=== PATIENT | female | born 1990 | race American Indian/Alaskan Native ===

== ENCOUNTER 2018-08-01 09:44 | Inpatient (IN) | payer MEDICAID ==
[2018-08-01] MEDS ORDERED: Sodium Chloride 0.9% 1,000 ML IV ONE ×3 (10:01→10:56)
--- NOTE | 2018-08-01 10:14 | C.PDOC ---
History Of Present Illness 28 y/o female,w/PMhx of Type 1 diabetes, brought to ER by ambulance for nausea, vomiting, near-syncope, and shortness of breath which began at approximately 3 am. Patient states that she was in [place] and she did not take insulin for the past 2 days. Patient reports that she had DKA about 6 months ago. Denies having fever, chills, CP, and abdominal pain. Time Seen by Provider: 08/01/18 10:01 Chief Complaint (Nursing): High Blood Sugar History Per: Patient History/Exam Limitations: no limitations Onset/Duration Of Symptoms: Hrs Current Symptoms Are (Timing): Still Present Severity: Moderate Past Medical History Reviewed: Historical Data, Nursing Documentation, Vital Signs - Medical History PMH: Diabetes Surgical History: Family History: States: No Known Family Hx - Social History Hx Alcohol Use: No Hx Substance Use: No - Immunization History Hx Tetanus Toxoid Vaccination: No Hx Influenza Vaccination: No Hx Pneumococcal Vaccination: No Review Of Systems Except As Marked, All Systems Reviewed And Found Negative. Cardiovascular: Negative for: Chest Pain Respiratory: Positive for: Shortness of Breath Gastrointestinal: Positive for: Nausea, Vomiting. Negative for: Abdominal Pain Physical Exam - Physical Exam Appears: Other (uncomfortable, moaning, actively vomiting) Skin: Normal Color, Warm, Dry Head: Atraumatic, Normacephalic Eye(s): bilateral: Normal Inspection Nose: Normal Oral Mucosa: Dry Lips: Other (dry chapped lips) Neck: Supple Chest: Symmetrical Cardiovascular: Rhythm Regular (with tachycardia) Respiratory: Normal Breath Sounds, No Rales, No Rhonchi, No Wheezing Gastrointestinal/Abdominal: Soft, Tenderness (mild diffuse tenderness), No Guarding, No Rebound Neurological/Psych: Oriented x3, Normal Speech ED Course And Treatment Progress Note: Labs, UA, HCG- Qual.,and CXR ordered. Patient treated with Insulin IV, Zofran IV, and IV Fluids. Disposition - Disposition Forms: [facility] ([place]) - Scribe Statement The provider has reviewed the documentation as recorded by the Scribe Rolanda Carlson Provider Attestation: All medical record entries made by the Scribe were at my direction and personally dictated by me. I have reviewed the chart and agree that the record accurately reflects my personal performance of the history, physical exam, medical decision making, and the department course for this patient. I have also personally directed, reviewed, and agree with the discharge instructions and disposition.
[2018-08-01] MEDS ORDERED: Sodium Chloride 0.9% 1,000 ML ONE ×2 (10:19→13:32)
[2018-08-01 10:30] LABS: HEMOGLOBIN 13.7 g/dL (11.0-16.0); MONO # 0.3 K/uL (0.0-0.8)
[2018-08-01 10:35] LABS: VENOUS BLOOD GAS BASE EXCESS -21.3 mmol/L (0.0-2.0); VENOUS BLOOD GAS PCO2 34 mmHg (40-60); VENOUS BLOOD GAS PO2 33 mm/Hg (30-55); VENOUS BLOOD PH 7.02 (7.32-7.43)
[2018-08-01] MEDS ORDERED: (Novolin R) Insulin Human Regular 100 units/ml vial IVP ONE (10:37)
[2018-08-01] MEDS ORDERED: Insulin Human Regular 100 UNIT in Sodium Chloride 0.9% 99 ML IV STA (10:38)
[2018-08-01 10:54] LABS: BASO # 0.1 K/uL (0.0-0.2); BASO % 0.8 % (0.0-2.0); LYMPH # 1.8 K/uL (1.0-4.3); LYMPH % 11.6 % (20.0-40.0); MEAN CELL VOLUME 90.2 fL (81.0-99.0); MEAN PLATELET VOLUME 9.9 fL (7.2-11.7); MONO % 2.1 % (0.0-10.0); NEUT # 13.3 K/uL (1.8-7.0); NEUT % 85.5 % (50.0-75.0); RBC 5.06 Mil/uL (3.80-5.20); RED CELL DISTRIBUTION WIDTH 15.2 % (11.5-14.5); WHITE BLOOD COUNT 15.5 K/uL (4.8-10.8)
[2018-08-01 11:15] LABS: ALB/GLOB RATIO 1.5 (1.0-2.1); ALBUMIN 5.3 g/dL (3.5-5.0); ALT/SGPT 10 U/L (9-52); AST/SGOT 26 U/L (14-36); BLOOD UREA NITROGEN 20 mg/dL (7-17); GFR NON-AFRICAN AMERICAN > 60; LIPASE 53 U/L (23-300)
--- NOTE | 2018-08-01 11:17 | RAD ---
Date of service: 08/01/2018 PROCEDURE: CHEST RADIOGRAPH, 1 VIEW HISTORY: possible dkA COMPARISON: No prior FINDINGS: LUNGS: Clear. PLEURA: No pneumothorax or pleural fluid seen. CARDIOVASCULAR: No aortic atherosclerotic calcification present. Normal. OSSEOUS STRUCTURES: No significant abnormalities. VISUALIZED UPPER ABDOMEN: Normal. OTHER FINDINGS: None. IMPRESSION: No active disease.
[2018-08-01] MEDS ORDERED: (Novolin R) Insulin Human Regular 100 units/ml vial ONE (11:40)
[2018-08-01] MEDS ORDERED: Sodium Chloride 0.9% 2,000 ML ONE (11:41)
--- NOTE | 2018-08-01 11:43 | CP.PCM.CON ---
History of Present Illness - History of Present Illness History of Present Illness: PGY-1 ICU consult note for Dr Diez service cc: nausea Patient is a 28 year old female with pmhx of Diabetes type 1 that came to the ED today for nausea and 10 episodes of clear yellow, non bloody vomiting. Patient admits to having abdominal pain and headaches, as well as back pain. Patient has been out of town to [place] and states she has not taken her injectable insulin since Wednesday. Patient complaints of being cold, and it is seen shivering. Patient denies chest pain, shortness of breath or fever, diarrhea, constipation or urinary symptoms. Patient says cannot speak anymore due to abdominal pain. As per ED note, patient had a previous diagnosis of DKA about 6 months ago. today's labs are indicative of DKA, patient received one stat dose of IVP insulin and is currently on an insulin drip. PMD: unknown Pmhx: diabetes type 1 Shx: 2 c-sections (2016, 2011) All: NKDA Meds: insulin Review of Systems - Review of Systems All systems: reviewed and no additional remarkable complaints except Review of Systems: as stated in HPI Past Patient History - Past Social History Smoking Status: Never Smoked - ENDOCRINE/METABOLIC Hx Diabetes Mellitus Type 1: Yes - PSYCHIATRIC Hx Substance Use: No - SURGICAL HISTORY Hx Surgeries: Yes Hx Section: Yes (CS) - ANESTHESIA Hx Anesthesia: Yes Hx Anesthesia Reactions: No Meds Allergies/Adverse Reactions: Allergies Allergy/AdvReac Type Severity Reaction Status Date / Time No Known Allergies Allergy Verified 08/01/18 10:00 - Medications Medications: Current Medications Insulin Human Regular 100 unit (/ Sodium Chloride) 100 mls @ 1.25 mls/hr IV .Q24H STA; Protocol Stop: 08/02/18 10:37 Sodium Chloride (Sodium Chloride 0.9%) 1,000 mls @ 1,000 mls/hr IV .Q1H ONE Stop: 08/01/18 11:55 Physical Exam - Constitutional Appears: In Acute Distress - Head Exam Head Exam: ATRAUMATIC, NORMAL INSPECTION, NORMOCEPHALIC - Eye Exam Eye Exam: EOMI - ENT Exam ENT Exam: Mucous Membranes Moist, Normal Exam - Neck Exam Neck exam: Positive for: Normal Inspection - Respiratory Exam Respiratory Exam: Clear to Auscultation Bilateral, NORMAL BREATHING PATTERN. absent: Rales, Rhonchi, Wheezes - Cardiovascular Exam Cardiovascular Exam: Tachycardia, +S1, +S2 - GI/Abdominal Exam GI & Abdominal Exam: Soft, Tenderness (diffuse tenderness to light palpation on all quadrants ) - Neurological Exam Neurological exam: Alert, Oriented x3 - Psychiatric Exam Psychiatric exam: Anxious - Skin Skin Exam: Dry, Normal Color, Warm Results - Vital Signs Recent Vital Signs: Last Vital Signs Temp 97.6 F 08/01/18 09:48 Pulse 133 H 08/01/18 09:48 Resp 23 08/01/18 09:48 BP 121/71 08/01/18 09:48 Pulse Ox 100 08/01/18 09:48 - Labs Result Diagrams: 08/01/18 10:34 08/01/18 13:47 Labs: Laboratory Results - last 24 hr 08/01/18 08/01/18 08/01/18 09:47 10:31 10:34 WBC 15.5 H RBC 5.06 Hgb 13.7 Hct 45.6 MCV 90.2 MCH 27.0 MCHC 30.0 L RDW 15.2 H Plt Count 479 H MPV 9.9 Neut % (Auto) 85.5 H Lymph % (Auto) 11.6 L [place] % (Auto) 2.1 Eos % (Auto) 0.0 Baso % (Auto) 0.8 Neut # (Auto) 13.3 H Lymph # (Auto) 1.8 [place] # (Auto) 0.3 Eos # (Auto) 0.0 Baso # (Auto) 0.1 pO2 33 VBG pH 7.02 L* VBG pCO2 34 L VBG HCO3 6.6 VBG Total CO2 9.8 L VBG O2 Sat (Calc) 59.1 VBG Base Excess -21.3 L VBG Potassium 5.0 Sodium 142.0 Chloride 96.0 L Glucose > 750 H* Lactate 5.1 H* Crit Value Called To Dr dickens Crit Value Called By Elijah rios junior media buyer Crit Value Read Back Y Blood Gas Notified Time 1035 Potassium Carbon Dioxide Anion Gap BUN Creatinine Est GFR ( Amer) Est GFR (Non-Af Amer) POC Glucose (mg/dL) > 500 H* Random Glucose Calcium Total Bilirubin AST ALT Alkaline Phosphatase Total Protein Albumin Globulin Albumin/Globulin Ratio Lipase Venous Blood Potassium 5.0 08/01/18 10:36 WBC RBC Hgb Hct MCV MCH MCHC RDW Plt Count MPV Neut % (Auto) Lymph % (Auto) [place] % (Auto) Eos % (Auto) Baso % (Auto) Neut # (Auto) Lymph # (Auto) [place] # (Auto) Eos # (Auto) Baso # (Auto) pO2 VBG pH VBG pCO2 VBG HCO3 VBG Total CO2 VBG O2 Sat (Calc) VBG Base Excess VBG Potassium Sodium 139 Chloride 98 Glucose Lactate Crit Value Called To Crit Value Called By Crit Value Read Back Blood Gas Notified Time Potassium 5.3 H Carbon Dioxide 8 L* Anion Gap 38 H BUN 20 H Creatinine 1.0 Est GFR ( Amer) > 60 Est GFR (Non-Af Amer) > 60 POC Glucose (mg/dL) Random Glucose 855 H* Calcium 10.0 Total Bilirubin 0.5 AST 26 ALT 10 Alkaline Phosphatase 178 H Total Protein 8.7 H Albumin 5.3 H Globulin 3.4 Albumin/Globulin Ratio 1.5 Lipase 53 Venous Blood Potassium Assessment & Plan - Assessment and Plan (Free Text) Plan: Patient is a 28 year old female with pmhx of DM type 1 came to the ED this morning for nausea, vomiting this morning, noncompliant with insulin since last wednesday, patient found to have glucose levels of 855, pH of 7.02, CO2 of 34 consistent with DKA, transferred to ICU for management and monitoring. Give insulin IV and currently on heparin drip, received 3.5 L of NS, will continue to monitor ABG and labs. Neuro AAOx3 no acute issues Cardio Tachycardia 2/2 to pain/discomfort BP wnl monitor vitals Pulm Cxray- no active disease no current issues No O2 via NC at this time monitor O2 sat GI NPO Protonix Zofran PRN for nausea/vomiting Endo DKA Glucose 751 Ph7.01 , CO2 34, O2 33, HCO3 6.6 Lactate 5.1 3L bolus given in ED 500ml extra given NS maintainance dose @ 250cc/hr Insulin 6 units IVP x 1 dose in ED Insulin drip repeat ABG, CBC, CMP repeat labs Q6H accuchecks Q1H Vitals Q2H Nephro U/A pending monitor renal function on repeat labs ID WBC 15.5, probably reactive from DKA continue to monitor PPX GI - Protonix DVT- SCDs Plan discussed with Dr Chary Zapata, PGY-1 - Date & Time Date: 08/01/18 Time: 11:38
[2018-08-01] MEDS ORDERED: Sodium Chloride 0.9% 500 ML IV ONE ×3 (12:20→16:33)
[2018-08-01] MEDS: Sodium Chloride 0.9% 1,000 ML IV SCH ×2 (13:13→17:14)
[2018-08-01 13:25] LABS: ABG ALLEN TEST POS; ARTERIAL BLOOD GAS HCO3 8.5 mmol/L (21-28); ARTERIAL BLOOD GAS HEMOGLOBIN 10.3 g/dL (11.7-17.4); ARTERIAL BLOOD GAS O2 SAT 99.5 % (95-98); ARTERIAL BLOOD GAS PCO2 20 mm/Hg (35-45); ARTERIAL BLOOD GAS PH 7.12 (7.35-7.45); ARTERIAL BLOOD GAS PO2 124 mm/Hg (80-100); ARTERIAL BLOOD GAS TCO2 7.1 mmol/L (22-28)
[2018-08-01 13:38] LABS: HCG,QUALITATIVE URINE NEGATIVE (NEGATIVE)
[2018-08-01 13:45] LABS: SQUAMOUS EPITHIAL < 1 /hpf (0-5); URINE BACTERIA OCC (<OCC); URINE BILIRUBIN NEGATIVE (NEGATIVE); URINE BLOOD 3+ (NEGATIVE); URINE CLARITY Clear (Clear); URINE COLOR Straw (YELLOW); URINE GLUCOSE (UA) 3+ mg/dL (Normal); URINE LEUKOCYTE ESTERASE NEG Leu/uL (Negative); URINE PROTEIN NEGATIVE (NEGATIVE); URINE UROBILINOGEN NORMAL mg/dL (0.2-1.0)
[2018-08-01 14:22] LABS: ALB/GLOB RATIO 1.4 (1.0-2.1); ALT/SGPT 16 U/L (9-52); AST/SGOT 23 U/L (14-36); BLOOD UREA NITROGEN 19 mg/dL (7-17); CALCIUM 7.9 mg/dl (8.6-10.4); GFR NON-AFRICAN AMERICAN > 60
--- NOTE | 2018-08-01 18:19 | CP.PCM.HP ---
Present on Admission - Present on Admission Any Indicators Present on Admission: No Past Patient History - Past Social History Smoking Status: Never Smoked - ENDOCRINE/METABOLIC Hx Diabetes Mellitus Type 1: Yes - PSYCHIATRIC Hx Substance Use: No - SURGICAL HISTORY Hx Surgeries: Yes Hx Section: Yes (CS) - ANESTHESIA Hx Anesthesia: Yes Hx Anesthesia Reactions: No Hx Malignant Hyperthermia: No Has any member of the family had a problem w/ anesthesia?: No Meds Allergies/Adverse Reactions: Allergies Allergy/AdvReac Type Severity Reaction Status Date / Time No Known Allergies Allergy Verified 08/01/18 10:00 Physical Exam - Constitutional Appears: Well - Head Exam Head Exam: ATRAUMATIC, NORMAL INSPECTION, NORMOCEPHALIC - Eye Exam Eye Exam: EOMI, Normal appearance, PERRL Pupil Exam: NORMAL ACCOMODATION, PERRL - ENT Exam ENT Exam: Mucous Membranes Moist, Normal Exam - Neck Exam Neck exam: Positive for: Normal Inspection - Respiratory Exam Respiratory Exam: Decreased Breath Sounds - Cardiovascular Exam Cardiovascular Exam: REGULAR RHYTHM, +S1, +S2 - GI/Abdominal Exam GI & Abdominal Exam: Diminished Bowel Sounds, Soft - Rectal Exam Rectal Exam: Deferred Results - Vital Signs Recent Vital Signs: Last Vital Signs Temp 98.5 F 08/01/18 17:00 Pulse 113 H 08/01/18 18:13 Resp 12 08/01/18 18:13 BP 105/65 08/01/18 18:13 Pulse Ox 100 08/01/18 18:13 - Labs Result Diagrams: 08/01/18 18:15 08/01/18 18:15 Labs: Laboratory Results - last 24 hr 08/01/18 08/01/18 08/01/18 09:47 10:31 10:34 WBC 15.5 H RBC 5.06 Hgb 13.7 Hct 45.6 MCV 90.2 MCH 27.0 MCHC 30.0 L RDW 15.2 H Plt Count 479 H MPV 9.9 Neut % (Auto) 85.5 H Lymph % (Auto) 11.6 L [place] % (Auto) 2.1 Eos % (Auto) 0.0 Baso % (Auto) 0.8 Neut # (Auto) 13.3 H Lymph # (Auto) 1.8 [place] # (Auto) 0.3 Eos # (Auto) 0.0 Baso # (Auto) 0.1 Puncture Site pCO2 pO2 33 HCO3 ABG pH ABG Total CO2 ABG O2 Saturation ABG Base Excess ABG Hemoglobin ABG Carboxyhemoglobin POC ABG HHb (Measured) ABG Methemoglobin Luis Test VBG pH 7.02 L* VBG pCO2 34 L VBG HCO3 6.6 VBG Total CO2 9.8 L VBG O2 Sat (Calc) 59.1 VBG Base Excess -21.3 L VBG Potassium 5.0 Hgb O2 Saturation Sodium 142.0 Chloride 96.0 L Glucose > 750 H* Lactate 5.1 H* Crit Value Called To Dr dickens Crit Value Called By Elijah rios product promoter retail pet Crit Value Read Back Y Blood Gas Notified Time 1035 Potassium Carbon Dioxide Anion Gap BUN Creatinine Est GFR ( Amer) Est GFR (Non-Af Amer) POC Glucose (mg/dL) > 500 H* Random Glucose Calcium Phosphorus Magnesium Total Bilirubin AST ALT Alkaline Phosphatase Total Protein Albumin Globulin Albumin/Globulin Ratio Lipase Venous Blood Potassium 5.0 Urine Color Urine Clarity Urine pH Ur Specific [place] Urine Protein Urine Glucose (UA) Urine Ketones Urine Blood Urine Nitrate Urine Bilirubin Urine Urobilinogen Ur Leukocyte Esterase Urine WBC (Auto) Urine RBC (Auto) Ur Squamous Epith Cells Urine Bacteria Urine HCG, Qual 08/01/18 08/01/18 08/01/18 10:36 13:01 13:20 WBC RBC Hgb Hct MCV MCH MCHC RDW Plt Count MPV Neut % (Auto) Lymph % (Auto) [place] % (Auto) Eos % (Auto) Baso % (Auto) Neut # (Auto) Lymph # (Auto) [place] # (Auto) Eos # (Auto) Baso # (Auto) Puncture Site Lr pCO2 20 L pO2 124 H HCO3 8.5 L* ABG pH 7.12 L* ABG Total CO2 7.1 L ABG O2 Saturation 99.5 H ABG Base Excess -21.0 L ABG Hemoglobin 10.3 L ABG Carboxyhemoglobin 2.1 H POC ABG HHb (Measured) 0.5 ABG Methemoglobin 1.4 Luis Test Pos VBG pH VBG pCO2 VBG HCO3 VBG Total CO2 VBG O2 Sat (Calc) VBG Base Excess VBG Potassium Hgb O2 Saturation 96.0 Sodium 139 Chloride 98 Glucose Lactate Crit Value Called To Maged gomez rn Crit Value Called By Tori mendes, rt Crit Value Read Back Y Blood Gas Notified Time 1324 Potassium 5.3 H Carbon Dioxide 8 L* Anion Gap 38 H BUN 20 H Creatinine 1.0 Est GFR ( Amer) > 60 Est GFR (Non-Af Amer) > 60 POC Glucose (mg/dL) > 500 H* Random Glucose 855 H* Calcium 10.0 Phosphorus Magnesium Total Bilirubin 0.5 AST 26 ALT 10 Alkaline Phosphatase 178 H Total Protein 8.7 H Albumin 5.3 H Globulin 3.4 Albumin/Globulin Ratio 1.5 Lipase 53 Venous Blood Potassium Urine Color Urine Clarity Urine pH Ur Specific [place] Urine Protein Urine Glucose (UA) Urine Ketones Urine Blood Urine Nitrate Urine Bilirubin Urine Urobilinogen Ur Leukocyte Esterase Urine WBC (Auto) Urine RBC (Auto) Ur Squamous Epith Cells Urine Bacteria Urine HCG, Qual 08/01/18 08/01/18 08/01/18 13:23 13:47 13:57 WBC RBC Hgb Hct MCV MCH MCHC RDW Plt Count MPV Neut % (Auto) Lymph % (Auto) [place] % (Auto) Eos % (Auto) Baso % (Auto) Neut # (Auto) Lymph # (Auto) [place] # (Auto) Eos # (Auto) Baso # (Auto) Puncture Site pCO2 pO2 HCO3 ABG pH ABG Total CO2 ABG O2 Saturation ABG Base Excess ABG Hemoglobin ABG Carboxyhemoglobin POC ABG HHb (Measured) ABG Methemoglobin Luis Test VBG pH VBG pCO2 VBG HCO3 VBG Total CO2 VBG O2 Sat (Calc) VBG Base Excess VBG Potassium Hgb O2 Saturation Sodium 140 Chloride 109 H Glucose Lactate Crit Value Called To Crit Value Called By Crit Value Read Back Blood Gas Notified Time Potassium 5.2 Carbon Dioxide 9 L* Anion Gap 28 H BUN 19 H Creatinine 0.7 Est GFR ( Amer) > 60 Est GFR (Non-Af Amer) > 60 POC Glucose (mg/dL) 483 H* Random Glucose 492 H* D Calcium 7.9 L Phosphorus 4.6 H Magnesium 1.8 Total Bilirubin 0.3 AST 23 ALT 16 Alkaline Phosphatase 129 H D Total Protein 6.8 Albumin 4.0 Globulin 2.8 Albumin/Globulin Ratio 1.4 Lipase Venous Blood Potassium Urine Color Straw Urine Clarity Clear Urine pH 5.0 Ur Specific [place] 1.018 Urine Protein Negative Urine Glucose (UA) 3+ H Urine Ketones 2+ H Urine Blood 3+ H Urine Nitrate Negative Urine Bilirubin Negative Urine Urobilinogen Normal Ur Leukocyte Esterase Neg Urine WBC (Auto) < 1 Urine RBC (Auto) 1 Ur Squamous Epith Cells < 1 Urine Bacteria Occ H Urine HCG, Qual Negative 08/01/18 08/01/18 08/01/18 16:37 17:08 17:55 WBC RBC Hgb Hct MCV MCH MCHC RDW Plt Count MPV Neut % (Auto) Lymph % (Auto) [place] % (Auto) Eos % (Auto) Baso % (Auto) Neut # (Auto) Lymph # (Auto) [place] # (Auto) Eos # (Auto) Baso # (Auto) Puncture Site pCO2 pO2 HCO3 ABG pH ABG Total CO2 ABG O2 Saturation ABG Base Excess ABG Hemoglobin ABG Carboxyhemoglobin POC ABG HHb (Measured) ABG Methemoglobin Luis Test VBG pH VBG pCO2 VBG HCO3 VBG Total CO2 VBG O2 Sat (Calc) VBG Base Excess VBG Potassium Hgb O2 Saturation Sodium Chloride Glucose Lactate Crit Value Called To Crit Value Called By Crit Value Read Back Blood Gas Notified Time Potassium Carbon Dioxide Anion Gap BUN Creatinine Est GFR ( Amer) Est GFR (Non-Af Amer) POC Glucose (mg/dL) 405 H* 300 H 291 H Random Glucose Calcium Phosphorus Magnesium Total Bilirubin AST ALT Alkaline Phosphatase Total Protein Albumin Globulin Albumin/Globulin Ratio Lipase Venous Blood Potassium Urine Color Urine Clarity Urine pH Ur Specific [place] Urine Protein Urine Glucose (UA) Urine Ketones Urine Blood Urine Nitrate Urine Bilirubin Urine Urobilinogen Ur Leukocyte Esterase Urine WBC (Auto) Urine RBC (Auto) Ur Squamous Epith Cells Urine Bacteria Urine HCG, Qual Assessment & Plan - Assessment and Plan (Free Text) Plan: Continue IV insulin IV fluids Monitor the potassium Monitor the bicarb Sugar has gone down Patient is admitted to ICU I did endocrinology consultations As ordered
[2018-08-01 18:22] LABS: BASO # 0.1 K/uL (0.0-0.2); BASO % 0.3 % (0.0-2.0); EOS % 0.1 % (0.0-4.0); HEMOGLOBIN 10.4 g/dL (11.0-16.0); LYMPH # 3.8 K/uL (1.0-4.3); LYMPH % 21.2 % (20.0-40.0); MEAN CELL VOLUME 86.5 fL (81.0-99.0); MEAN CORPUSCULAR HEMOGLOBIN 26.9 pg (27.0-31.0); MEAN CORPUSCULAR HGB CONC 31.1 g/dL (33.0-37.0); MEAN PLATELET VOLUME 8.6 fL (7.2-11.7); MONO % 5.9 % (0.0-10.0); NEUT % 72.5 % (50.0-75.0); RBC 3.86 Mil/uL (3.80-5.20); RED CELL DISTRIBUTION WIDTH 14.4 % (11.5-14.5); WHITE BLOOD COUNT 17.9 K/uL (4.8-10.8)
[2018-08-01 18:44] LABS: ALB/GLOB RATIO 1.4 (1.0-2.1); ALBUMIN 3.7 g/dL (3.5-5.0); ALT/SGPT 11 U/L (9-52); AST/SGOT 21 U/L (14-36); BLOOD UREA NITROGEN 13 mg/dL (7-17); CALCIUM 7.6 mg/dl (8.6-10.4); GFR NON-AFRICAN AMERICAN > 60
[2018-08-01] MEDS ORDERED: Dextrose 5%/0.9% NS 1,000 ML IV ONE (22:11)
[2018-08-02 00:21] LABS: BASO # 0.1 K/uL (0.0-0.2); BASO % 0.6 % (0.0-2.0); EOS # 0.1 K/uL (0.0-0.7); EOS % 0.4 % (0.0-4.0); HEMOGLOBIN 10.5 g/dL (11.0-16.0); LYMPH # 3.2 K/uL (1.0-4.3); LYMPH % 20.5 % (20.0-40.0); MEAN CELL VOLUME 86.1 fL (81.0-99.0); MEAN CORPUSCULAR HEMOGLOBIN 27.4 pg (27.0-31.0); MEAN CORPUSCULAR HGB CONC 31.8 g/dL (33.0-37.0); MEAN PLATELET VOLUME 8.8 fL (7.2-11.7); MONO # 0.9 K/uL (0.0-0.8); NEUT # 11.2 K/uL (1.8-7.0); NEUT % 72.5 % (50.0-75.0); RBC 3.83 Mil/uL (3.80-5.20); RED CELL DISTRIBUTION WIDTH 14.4 % (11.5-14.5); WHITE BLOOD COUNT 15.5 K/uL (4.8-10.8)
[2018-08-02 00:34] LABS: ALB/GLOB RATIO 1.4 (1.0-2.1); ALBUMIN 3.5 g/dL (3.5-5.0); ALT/SGPT 15 U/L (9-52); AST/SGOT 15 U/L (14-36); BLOOD UREA NITROGEN 11 mg/dL (7-17); CALCIUM 7.8 mg/dl (8.6-10.4); GFR NON-AFRICAN AMERICAN > 60
[2018-08-02 05:03] LABS: BLOOD UREA NITROGEN 10 mg/dL (7-17); CALCIUM 7.6 mg/dl (8.6-10.4); GFR NON-AFRICAN AMERICAN > 60
[2018-08-02] MEDS: Dextrose 5%/0.45% NS 1,000 ML IV SCH ×2 (05:15→11:23)
[2018-08-02] MEDS: (Novolin R) Insulin Human Regular 100 units/ml vial SC SCH ×4 (10:12→20:49)
--- NOTE | 2018-08-02 14:37 | CP.PCM.PN ---
Subjective - Date & Time of Evaluation Date of Evaluation: 08/02/18 Time of Evaluation: 11:45 - Subjective Subjective: clinically same Objective - Vital Signs/Intake and Output Vital Signs (last 24 hours): Temp Pulse Resp BP Pulse Ox 98.5 F 116 H 18 107/46 L 100 08/02/18 12:00 08/02/18 13:40 08/02/18 13:40 08/02/18 12:00 08/02/18 13:40 Intake and Output: 08/02/18 08/02/18 06:59 18:59 Intake Total 2386 1050 Output Total 700 0 Balance 1686 1050 - Medications Medications: Current Medications Acetaminophen (Tylenol 325mg Tab) 650 mg PO Q6 PRN PRN Reason: Headache Last Admin: 08/02/18 10:12 Dose: 650 mg Dextrose/Sodium Chloride (Dextrose 5%/0.45% Ns 1000 Ml) 1,000 mls @ 150 mls/hr IV .Q6H40M [facility] Last Admin: 08/02/18 11:23 Dose: 150 mls/hr Insulin Human Regular (Novolin R) 0 unit SC Q4 [place]; Protocol Morphine Sulfate (Morphine) 2 mg IVP Q6H PRN PRN Reason: Pain, severe (8-10) Last Admin: 08/01/18 15:40 Dose: 2 mg Ondansetron HCl (Zofran Inj) 4 mg IVP Q12H PRN PRN Reason: Nausea/Vomiting Pantoprazole Sodium (Protonix Inj) 40 mg IVP DAILY [facility] Last Admin: 08/02/18 10:12 Dose: 40 mg - Labs Labs: 08/02/18 00:14 08/02/18 04:41 - Constitutional Appears: Well - Head Exam Head Exam: ATRAUMATIC, NORMAL INSPECTION, NORMOCEPHALIC - Eye Exam Eye Exam: EOMI, Normal appearance, PERRL Pupil Exam: NORMAL ACCOMODATION, PERRL - ENT Exam ENT Exam: Mucous Membranes Moist, Normal Exam - Neck Exam Neck Exam: Full ROM, Normal Inspection. absent: Lymphadenopathy - Respiratory Exam Respiratory Exam: Decreased Breath Sounds - Cardiovascular Exam Cardiovascular Exam: REGULAR RHYTHM, +S1, +S2 - GI/Abdominal Exam GI & Abdominal Exam: Soft, Diminished Bowel Sounds - Rectal Exam Rectal Exam: Deferred
[2018-08-02] MEDS: Sodium Chloride 0.9% 1,000 ML IV SCH (18:47)
--- NOTE | 2018-08-02 20:38 | CARD ---
APPROVED REPORT Date of service: 08/01/2018 EKG Measurement Heart [id number] <Conclusion> Sinus tachycardia Right atrial enlargement Nonspecific ST abnormality Abnormal ECG
[2018-08-03] MEDS: (Novolin R) Insulin Human Regular 100 units/ml vial SC SCH ×4 (00:01→12:00)
[2018-08-03] MEDS: Sodium Chloride 0.9% 1,000 ML IV SCH ×4 (03:00→22:09)
[2018-08-03] MEDS ORDERED: (Novolog) Insulin Aspart, Recombinant 100 u/ml 10 ml vial SC SCH (16:30)
[2018-08-03] MEDS: (Novolog) Insulin Aspart, Recombinant 100 u/ml 10 ml vial SC SCH ×3 (17:30→22:06)
--- NOTE | 2018-08-03 18:12 | CP.PCM.PN ---
Subjective - Date & Time of Evaluation Date of Evaluation: 08/03/18 Time of Evaluation: 09:45 - Subjective Subjective: clinically same Objective - Vital Signs/Intake and Output Vital Signs (last 24 hours): Temp Pulse Resp BP Pulse Ox 98.6 F 80 20 113/79 99 08/03/18 15:00 08/03/18 15:00 08/03/18 15:00 08/03/18 15:00 08/03/18 15:00 - Medications Medications: Current Medications Acetaminophen (Tylenol 325mg Tab) 650 mg PO Q6 PRN PRN Reason: Headache Last Admin: 08/02/18 10:12 Dose: 650 mg Sodium Chloride (Sodium Chloride 0.9%) 1,000 mls @ 125 mls/hr IV .Q8H REPLACED BY [facility] Last Admin: 08/03/18 18:01 Dose: Not Given Insulin Aspart (Novolog) 0 unit SC ACHS REPLACED BY [facility] Last Admin: 08/03/18 17:30 Dose: 3 units Insulin Aspart (Novolog) 10 unit SC AC REPLACED BY [facility] Last Admin: 08/03/18 17:30 Dose: 10 units Insulin Glargine (Lantus) 24 unit SC HS REPLACED BY [facility] Morphine Sulfate (Morphine) 2 mg IVP Q6H PRN PRN Reason: Pain, severe (8-10) Last Admin: 08/01/18 15:40 Dose: 2 mg Ondansetron HCl (Zofran Inj) 4 mg IVP Q12H PRN PRN Reason: Nausea/Vomiting Pantoprazole Sodium (Protonix Inj) 40 mg IVP DAILY REPLACED BY [facility] Last Admin: 08/03/18 09:46 Dose: 40 mg - Labs Labs: 08/02/18 00:14 08/02/18 04:41 - Constitutional Appears: Well - Head Exam Head Exam: ATRAUMATIC, NORMAL INSPECTION, NORMOCEPHALIC - Eye Exam Eye Exam: EOMI, Normal appearance, PERRL Pupil Exam: NORMAL ACCOMODATION, PERRL - ENT Exam ENT Exam: Mucous Membranes Moist, Normal Exam - Neck Exam Neck Exam: Full ROM, Normal Inspection. absent: Lymphadenopathy - Respiratory Exam Respiratory Exam: Decreased Breath Sounds - Cardiovascular Exam Cardiovascular Exam: REGULAR RHYTHM, +S1, +S2 - GI/Abdominal Exam GI & Abdominal Exam: Soft, Diminished Bowel Sounds - Rectal Exam Rectal Exam: Deferred
[2018-08-03] MEDS ORDERED: (Lantus) Insulin Glargine, Recombinant SC SCH (22:00)
[2018-08-04 00:56] VITALS: O2SAT 100
[2018-08-04] MEDS ORDERED: Dextrose 50% SYRINGE Inj (50 ml) IV PRN (06:33)
[2018-08-04] MEDS ORDERED: Glucagon Recombinant 1 mg Inj IM PRN (06:33)
--- NOTE | 2018-08-04 06:45 | CON ---
DATE: 08/03/2018 LOCATION: Room 570. HISTORY OF PRESENT ILLNESS: This is a 28-year-old female with known history of type 1 insulin-dependent diabetes, presenting here with intractable nausea, dyspepsia and vomiting, and progressive shortness of breath, admitted to recent omission of her insulin therapy for the last two days prior to admission and presented here with diabetic ketoacidosis and dehydration and is being referred now for diabetic evaluation and management. PAST MEDICAL HISTORY: As mentioned above, history of type 1 insulin-dependent diabetes, on Levemir taken as 20 units b.i.d. and Humalog given as per sliding scale t.i.d. before meals as ordered. FAMILY HISTORY: Positive for diabetes and hypertension. SOCIAL HISTORY: The patient has a supportive family. No known substance use. REVIEW OF SYSTEMS: Admits to generalized body weakness with progressive bouts of dizziness and lightheadedness with suboptimal energy level and generalized body weakness. No chest pains or palpitations. Oral intake has been variable with nausea, dyspepsia and upper abdominal pain. Also admits to marked polyuria, nocturia, and polydipsia. PHYSICAL EXAMINATION: GENERAL: Average-built female, in no apparent distress. VITAL SIGNS: Blood pressure of 140/80, pulse of 70 beats per minute and regular, temperature 98, and respirations 20. Height is 5 feet 5 inches. Weight is 138 pounds. HEENT: Head is normocephalic. Eyes anicteric with pink conjunctivae. Funduscopy not possible at this time. Ears, nose and throat otherwise normal. NECK: Supple. Thyroid gland is normal size. No carotid bruits or any cervical adenopathy. CARDIOPULMONARY: Some adynamic precordium. S1 and S2 are rapid and regular. LUNGS: Clear to auscultation. ABDOMEN: Flat, soft with positive bowel sounds. EXTREMITIES: No peripheral edema. Pulses are +2 bilaterally. LABORATORY DATA: Today showed a BUN of 10, sodium 138, potassium 3.6, chloride 113, CO2 of 19, glucose 145, and creatinine 0.5. Her glucose levels have ranged from 310 to 308 today, it was 448 to 285 last night as noted. ASSESSMENT AND PLAN: This is a 28-year-old female with uncontrolled and decompensated type 1 insulin-dependent diabetes with recent drug omission, presenting here with diabetic ketoacidosis and dehydration and has now been referred for diabetic evaluation and management. She received intensive insulin therapy with an insulin drip infusion in the ICU as noted. She also received vigorous IV hydration as given. At this time, we will switch over to a more physiologic basal and bolus insulin drug combination as ordered. We will start her with Novolog given as 10 units three times daily before meals to start today as ordered. We will add Lantus given as 24 units subcutaneous at bedtime daily to start tonight. We will modify the coverage scale to obviate hypoglycemia and detailed orders have been given. We will obtain a hemoglobin A1c to confirm her prior glycemic control and baseline thyroid function studies will be ordered. We will follow and advise accordingly. Shannan Blue MD
[2018-08-04] MEDS: (Novolog) Insulin Aspart, Recombinant 100 u/ml 10 ml vial SC SCH ×2 (08:05)
[2018-08-04 08:16] VITALS: BP 120/83; PULSE 82; RESP 20; TEMP 98.1
[2018-08-04] MEDS: Sodium Chloride 0.9% 1,000 ML IV SCH (08:32)
[2018-08-04 09:34] LABS: LDL CHOLESTEROL 77 mg/dL (0-129)
[2018-08-04 09:37] LABS: ALB/GLOB RATIO 1.4 (1.0-2.1); ALBUMIN 3.5 g/dL (3.5-5.0); ALT/SGPT 21 U/L (9-52); AST/SGOT 22 U/L (14-36); BLOOD UREA NITROGEN 8 mg/dL (7-17); CALCIUM 8.4 mg/dl (8.6-10.4); GFR NON-AFRICAN AMERICAN > 60; HDL CHOLESTEROL 48 mg/dL (30-70)
--- NOTE | 2018-08-04 12:52 | CP.PCM.PN ---
Subjective - Date & Time of Evaluation Date of Evaluation: 08/04/18 Time of Evaluation: 09:15 - Subjective Subjective: clinically same Objective - Vital Signs/Intake and Output Vital Signs (last 24 hours): Temp Pulse Resp BP Pulse Ox 98.1 F 82 20 120/83 100 08/04/18 08:15 08/04/18 08:15 08/04/18 08:15 08/04/18 08:15 08/04/18 08:15 - Medications Medications: Current Medications Acetaminophen (Tylenol 325mg Tab) 650 mg PO Q6 PRN PRN Reason: Headache Last Admin: 08/02/18 10:12 Dose: 650 mg Dextrose (Dextrose 50% Inj) 0 ml IV STAT PRN; Protocol PRN Reason: Hypoglycemia Protocol Dextrose (Glutose 15) 0 gm PO ONCE PRN; Protocol PRN Reason: Hypoglycemia Protocol Glucagon (Glucagen Diagnostic Kit) 0 mg IM STAT PRN; Protocol PRN Reason: Hypoglycemia Protocol Sodium Chloride (Sodium Chloride 0.9%) 1,000 mls @ 125 mls/hr IV .Q8H [facility] Last Admin: 08/04/18 08:32 Dose: 125 mls/hr Dextrose (Dextrose 5% In Water 1000 Ml) 1,000 mls @ 0 mls/hr IV .Q0M PRN; Protocol PRN Reason: Hypoglycemia Protocol Insulin Aspart (Novolog) 0 unit SC ACHS [facility] Last Admin: 08/04/18 08:05 Dose: Not Given Insulin Aspart (Novolog) 6 unit SC AC [place] Insulin Glargine (Lantus) 14 unit SC HS [facility] Morphine Sulfate (Morphine) 2 mg IVP Q6H PRN PRN Reason: Pain, severe (8-10) Last Admin: 08/01/18 15:40 Dose: 2 mg Ondansetron HCl (Zofran Inj) 4 mg IVP Q12H PRN PRN Reason: Nausea/Vomiting Pantoprazole Sodium (Protonix Inj) 40 mg IVP DAILY [facility] Last Admin: 08/04/18 09:10 Dose: 40 mg - Labs Labs: 08/02/18 00:14 08/04/18 08:57 - Constitutional Appears: Well - Head Exam Head Exam: ATRAUMATIC, NORMAL INSPECTION, NORMOCEPHALIC - Eye Exam Eye Exam: EOMI, Normal appearance, PERRL Pupil Exam: NORMAL ACCOMODATION, PERRL - ENT Exam ENT Exam: Mucous Membranes Moist, Normal Exam - Neck Exam Neck Exam: Full ROM, Normal Inspection. absent: Lymphadenopathy - Respiratory Exam Respiratory Exam: Decreased Breath Sounds - Cardiovascular Exam Cardiovascular Exam: REGULAR RHYTHM, +S1, +S2 - GI/Abdominal Exam GI & Abdominal Exam: Soft, Diminished Bowel Sounds - Rectal Exam Rectal Exam: Deferred
[2018-08-04] MEDS ORDERED: (Novolog) Insulin Aspart, Recombinant 100 u/ml 10 ml vial SC SCH (16:30)
[2018-08-04] MEDS ORDERED: (Lantus) Insulin Glargine, Recombinant SC SCH (22:00)
--- NOTE | 2018-08-05 00:39 | PN ---
DATE: 08/04/2018 ENDO FOLLOWUP NOTE LOCATION: Room 570. SUBJECTIVE: This is a 28-year-old female with recent uncontrolled type 1 insulin-dependent diabetes with extremes of glycemic fluctuations that clearly developed symptomatic hypoglycemia. Her glucose levels have ranged from 51 to 61 and 70 mg/dL. LABORATORY DATA: Her recent chemistry showed a BUN of 8, sodium 136, potassium 3.7, chloride 103, CO2 of 26, glucose 169, and creatinine 0.4. Her A1c is extremely elevated at 12.8%, this indicative of some optimal metabolic control of her diabetic condition. PLAN: We will follow and advise accordingly. Shannan Blue MD
== END 2018-08-04 13:34 | disposition left against medical advice (07) | DRG 420 ==
LOC: C.ER 09:44 → C.9E 11:30 → C.9I 12:31 → C.9E 14:33 → C.9I 16:40 → C.5S 08-02 16:52
PROVIDERS: ADMIT Internal Medicine Nephrology; ATTEND Internal Medicine Nephrology
DX: E10.10 Type 1 diabetes mellitus with ketoacidosis without coma (principal); E10.649 Type 1 diabetes mellitus with hypoglycemia without coma; E86.0 Dehydration; I10 Essential (primary) hypertension; Z79.4 Long term (current) use of insulin; Z98.891 History of uterine scar from previous surgery; Z91.14 Patient's other noncompliance with medication regimen